=== PATIENT | female | born 1995 | race American Indian/Alaskan Native ===

== ENCOUNTER 2017-10-31 16:26 | Emergency (ER) | payer BC ==
[2017-10-31 16:39] VITALS: BMI 18.5
[2017-10-31 16:46] VITALS: TEMP 98.7
[2017-10-31 17:35] LABS: SQUAMOUS EPITHIAL 8 /hpf (0-5); URINE BACTERIA OCC (<OCC); URINE BILIRUBIN NEGATIVE (NEGATIVE); URINE BLOOD 3+ (NEGATIVE); URINE CLARITY Hazy (Clear); URINE COLOR Yellow (YELLOW); URINE GLUCOSE (UA) NORMAL (Normal); URINE LEUKOCYTE ESTERASE 2+ Leu/uL (Negative); URINE PROTEIN 1+ mg/dL (NEGATIVE); URINE UROBILINOGEN NORMAL mg/dL (0.2-1.0)
[2017-10-31 17:53] LABS: BASO % 0.7 % (0.0-2.0); EOS # 0.1 K/uL (0.0-0.7); EOS % 2.5 % (0.0-4.0); HEMOGLOBIN 11.4 g/dL (11.0-16.0); LYMPH # 1.8 K/uL (1.0-4.3); LYMPH % 34.5 % (20.0-40.0); MEAN CORPUSCULAR HEMOGLOBIN 26.8 pg (27.0-31.0); MEAN CORPUSCULAR HGB CONC 32.3 g/dL (33.0-37.0); MEAN PLATELET VOLUME 7.8 fL (7.2-11.7); MONO # 0.6 K/uL (0.0-0.8); MONO % 11.8 % (0.0-10.0); NEUT # 2.7 K/uL (1.8-7.0); NEUT % 50.5 % (50.0-75.0); NRBC % 0.1 % (0.0-2.0); RBC 4.28 Mil/uL (3.80-5.20); RED CELL DISTRIBUTION WIDTH 13.5 % (11.5-14.5); WHITE BLOOD COUNT 5.2 K/uL (4.8-10.8)
--- NOTE | 2017-10-31 17:55 | RAD ---
HISTORY: midline back pain COMPARISON: No prior. FINDINGS: BONES: Levoconvex curvature of the thoracic spine. No fracture. DISC SPACES: Normal. SOFT TISSUES: Normal. OTHER FINDINGS: None. IMPRESSION: Mild spinal curvature. No acute fracture.
[2017-10-31 18:13] LABS: ALB/GLOB RATIO 0.8 (1.0-2.1); ALT/SGPT 8 U/L (9-52); AST/SGOT 35 U/L (14-36); BLOOD UREA NITROGEN 11 mg/dL (7-17); CALCIUM 9.1 mg/dl (8.6-10.4); GFR AFRICAN-AMERICAN > 60; GFR NON-AFRICAN AMERICAN > 60
--- NOTE | 2017-10-31 19:37 | C.PDOC ---
History Of Present Illness The patient, whose PMHx includes hypothyroidism and lupus, presents to the ED for evaluation of back pain which began yesterday. Patient states symptoms are worse with movement. Patient took one tablet of 200mg Motrin without relief. She denies cough, chest pain, shortness of breath, urinary symptoms, and abdominal pain. Patient notes she is currently at the end of her menstrual cycle. Time Seen by Provider: 10/31/17 16:52 Chief Complaint (Nursing): Back Pain History Per: Patient History/Exam Limitations: no limitations Onset/Duration Of Symptoms: Days (2) Current Symptoms Are (Timing): Still Present Quality Of Discomfort: "Pain" Previous Symptoms: Back Pain Exacerbating Factor(s): Movement Additional History Per: Patient Past Medical History Reviewed: Historical Data, Nursing Documentation, Vital Signs Vital Signs: Last Vital Signs Temp 98.7 F 10/31/17 16:42 Pulse 70 10/31/17 20:01 Resp 16 10/31/17 20:01 BP 110/68 10/31/17 20:01 Pulse Ox 100 10/31/17 21:32 - Medical History PMH: Hypothyroidism Surgical History: No Surg Hx Family History: States: Unknown Family Hx - Social History Hx Alcohol Use: No Hx Substance Use: No - Immunization History Hx Tetanus Toxoid Vaccination: No Hx Influenza Vaccination: Yes Hx Pneumococcal Vaccination: No Review Of Systems Cardiovascular: Negative for: Chest Pain Respiratory: Negative for: Cough, Shortness of Breath Gastrointestinal: Negative for: Abdominal Pain Genitourinary: Positive for: Vaginal Bleeding (eend of menses). Negative for: Dysuria, Frequency Musculoskeletal: Positive for: Back Pain Physical Exam - Physical Exam Appears: Non-toxic, No Acute Distress Skin: Normal Color, Warm, Dry Head: Atraumatic, Normacephalic Eye(s): bilateral: Normal Inspection Oral Mucosa: Moist Neck: Supple Chest: Symmetrical, No Deformity, No Tenderness Cardiovascular: Rhythm Regular, No Murmur Respiratory: Normal Breath Sounds, No Rales, No Rhonchi, No Wheezing Gastrointestinal/Abdominal: Soft, No Tenderness, No Guarding, No Rebound Back: No CVA Tenderness, No Decreased ROM (Full ROM), Other (midline thoracic vertebral bony tenderness ) Extremity: Normal ROM, Capillary Refill (less than 2 seconds ) Neurological/Psych: Oriented x3, Normal Speech, Normal Cognition, Other (flat affect ) Gait: Steady ED Course And Treatment - Laboratory Results Result Diagrams: 10/31/17 17:48 10/31/17 17:48 O2 Sat by Pulse Oximetry: 100 (on RA) Pulse Ox Interpretation: Normal Medical Decision Making Medical Decision Making: pt with midline and left thoracic pain, worse with movement, no fever, cough. sob, ab pain. fever, chills, urinary symptoms. neg thoracic spine xray, labs wnl, blood in urine (pt menstruating) and no urinary symptoms; will follow culture. pt feeling decreased pain on re-exam. will d/c with nsaids, f/u with chief administrative officer and director of clinical trials on Friday. Return to ER for any worse pain, fever or other concerns. Disposition Counseled Patient/Family Regarding: Studies Performed, Diagnosis, Need For Followup - Disposition Referrals: Chapo Amato MD [Staff Provider] - Disposition: HOME/ ROUTINE Disposition Time: 19:49 Condition: IMPROVED Additional Instructions: Take Ibuprofen 40 mg or Tylenol 650 mg by mouth every 4-6 hours for pain. Follow up with director of clinical trials and chief administrative officer on Friday. Return to ER for any worse symptoms, fever, or other concerns. Prescriptions: Acetaminophen [Tylenol 325mg tab] 650 mg PO Q6 #30 tab Instructions: Upper Back Pain (DC) Forms: [facility] (Swedish), General Discharge Instructions - Clinical Impression Clinical Impression: Thoracic back pain - PA / [employer] / Resident Statement MD/DO has reviewed & agrees with the documentation as recorded. - Scribe Statement The provider has reviewed the documentation as recorded by the Scribe (Kelley Carter) All medical record entries made by the Scribe were at my direction and personally dictated by me. I have reviewed the chart and agree that the record accurately reflects my personal performance of the history, physical exam, medical decision making, and the department course for this patient. I have also personally directed, reviewed, and agree with the discharge instructions and disposition.
[2017-10-31 20:01] VITALS: BP 110/68; PULSE 70; RESP 16
[2017-10-31 21:32] VITALS: O2SAT 100
== END 2017-10-31 20:01 | disposition home or self-care (01) ==
LOC: C.ER 16:26
DX: M54.6 Pain in thoracic spine (principal)
CPT/HCPCS: 72070; 80053; 81001; 85025; 87086; 96374; 99283; J1885